=== PATIENT | female | born 2000 | race Two or more races ===

== ENCOUNTER 2024-11-15 13:46 | Outpatient (OUT) | payer BC, MEDICAID, SELFPAY ==
--- OUTSIDE RECORDS SUMMARY | 2023-11-24 06:40 | XMS_ITS ---
Author Organization [facility] Address [address] [place] [address] Care Team Providers Care Casting And Locker Room Servicer Name Role Phone Davis Velásquez Unavailable [phone] Results Component Value Reference Range Notes *US OB Transvaginal Reviewed date:11/25/2023 11:02:06 AM Interpretation: Performing Lab: Notes/Report: [facility] Women's Health transvaginal Obstetric Study Report Name: TIA CALVIN Accession/Encounter No:[id number] : 2000 Age: 23 Gender: F Study [...] Present Biometry (Fetus A) HR: 178 bpm [place]-rump length:19.88 mm8w 4d 30% Anatomy (Fetus A) [...] 1 of 1 Imaging Center - , [facility] [id number] [facility] [address] Millie Vicente REASON FOR VISIT dates per JOSIE: 06/28/24 LMP: Social History Sex Assigned At : Social History Observation Description Sex Assigned At Female Encounters Encounter Location Date Provider Diagnosis Ultrasound [place] Millie Vicente [place]-SHLF [address] [facility] [place] [address] 11/24/2023 Davis Velásquez test positive Z32.01 Assessments Encounter Date Diagnosis (ICD Code) Assessment Notes Treatment Notes Treatment Clinical Notes Section Notes 11/24/2023 test positive (ICD-10 - Z32.01) Plan Of Treatment No Information Progress Notes * Tia CALVINDOB:2000 (24 yo F)Acc No.[id number]:11/24/2023 Patient: Tia Cornell Provider: Romana Velásquez CNM :2000 A ge:23 Y S ex:Female Date:11/24/2023 Address:[address] [place] [address] [place] , [id number] Subjective: * Chief Complaints: * d ates per ac JOSIE: 06/28/24 LMP: Assessment: * Assessment: 1. P regnancy test positive - Z32.01 Plan: * Treatment: Billing Information: * Procedure Codes: * Electronic signature of Moira Velásquez NP on 11/15/2024 at 01:55 PM EDT Sign off status: Pending Visit Status: C HK (Check Out) * Provider: Romana Velásquez CNM Date: Generated for Abhishek roger/Jules/eToli on: 01:55 PM EDT
--- OUTSIDE RECORDS SUMMARY | 2024-11-15 13:55 | XMS_ITS | Clinical Summary ---
Author Organization [facility] Address [address] [place] [address] Care Team Providers Care Electronic Maintenance Supervisor Name Role Phone Unavailable Primary Care Provider Unavailabl e Social History Tobacco Use Types Packs/Day Years Used Date Smoking Tobacco: Never Assessed Comments Unknown Sex and Gender Information Value Date Recorded Sex Assigned at Not on file Legal Sex Female 10:17 AM EDT Gender Identity Not on file Sexual Orientation Not on file Plan of Treatment Upcoming Encounters Date Type Department Care Team (Late st Contact Info) Description 11/15/2024 2:30 PM EDT Initial [facility] [address] [place] [address] [place] [address] Insurance [facility]
--- OUTSIDE RECORDS SUMMARY | 2024-11-15 13:55 | XMS_ITS | Patient Health Record ---
Author Organization [facility] Address [address] [place] [address] Care Team Providers Care Teller Head Name Role Phone Davis Velásquez Unavailable [phone] Shira Santiago Unavailable [phone] Allergies No Known Allergies Results Component Value Reference Range Flag Notes *US OB Transvaginal Reviewed date:11/25/2023 11:02:06 AM Interpretation: Performing Lab: Notes/Report: [facility] Women's Health transvaginal Obstetric Study Report Name: TIA CALVIN Accession/Encounter No:[id number] : 2000 Age: 23 Gender: F Study [...] Present Biometry (Fetus A) HR: 178 bpm [place]-rump length:19.88 mm8w 4d 30% Anatomy (Fetus A) [...] TIA CALVIN 2023-11-24 Page 1 of 1 [facility] - , [place] [id number] u2013 [place] Drug Profile Screen, Urine Reviewed date:11/18/2023 11:18:43 AM Interpretation:Abnormal Performing Lab:[facility] CLIA ID [id number], [address], [address], [place] [address], Director - Alexandra Henderson MD Notes/Report: Urine Source: Urine Amphetamines Negative Barbiturates Negative Benzodiazepines Negative Buprenorphine Negative Cocaine Metabolite Negative Fentanyl Negative Methadone Negative Opiates Negative Oxycodone Negative Cannabinoids Positive A Sent to Lab or for confirmation testing CNR Pap w/reflex HPV/CTNG Reviewed date:11/25/2023 12:25:16 PM Interpretation: Performing Lab:[facility], [facility] - [facility] [place] CLIA ID [id number], [address], [address], [place] [address], Director - Alexandra Henderson MD Notes/Report: Any Nucleic Acid Amplification testing is performed on the [employer] [place]. Diagnosis: Negative for intraepithelial lesion or malignancy. AP results FINAL FARM EQUIPMENT SERVICE TECHNICIAN CYTOLOGY REPORT DIAGNOSIS: Negative for intraepithelial lesion or malignancy. Specimen Adequacy: Satisfactory for interpretation with endocervical/transform ation zone component absent. Pertinent Clinical History/History of Surgery: Not provided Collection Technique: Not provided Results of Last Pap: Not provided LMP: unknown Date of Last Pap: Not provided Specimen Source: Cervical Specimen Type: ThinPrep Other Gynecological Patient Information: Not provided Recommendation: Follow-up based on current clinical guidelines and/or clinical consideration. Screening note: This specimen has been analyzed by the ThinPrep Imaging System, an interactive computer system which assists the lab in screening of ThinPrep Pap Test slides. Following imaging, the slide was reviewed by a Mechanical Reliability Engineer and/or Pathologist. Negative Educational Note: The pap screening test aids in the detection of premalignant and malignant states of the cervix. False positive and negative results may occur. It is not a diagnostic test. If abnormal cells are reported, follow-up based on current clinical guidelines and/or clinical consideration is recommended. Lisa Stoll Mechanical Reliability Engineer CPT Codes: 69691 ICD Codes: Z32.01 Chlamydia Trachomatis Negative Negative Neisseria Gonorrhoeae Negative Negative Urine Culture and Sensitivit y Reviewed date:11/21/2023 10:17:58 AM Interpretation: Performing Lab: Notes/Report: [facility] performed at: [CB] [facility] [address], [address], , Circular Saw Operator: Blaine Huggins, PhD Urine Culture, Routine Final report N Result 1 Comment N Mixed urogenital rhonda 25,000-50,000 colony forming units per mL Urine Reviewed date:11/17/2023 09:18:36 AM Interpretation:Positive Performing Lab: Notes/Report: Cannabinoid (THC) Confirmati on, Urine Reviewed date:11/22/2023 04:08:19 PM Interpretation:Abnormal Performing Lab: Notes/Report: [facility] performed at: [UI] [facility], [address] [place], [address], , Circular Saw Operator: Caren Ayala, PhD Cannabinoid Positive A Carboxy THC Conf, MS, UR 263 Cutoff=10 ng/mL N Please Note: Comment N Drug test results should be interpreted in the context of clinical information. Patient metabolic variables, specific drug chemistry, and specimen characteristics can affect test outcome. Technical consultation is available if a test result is inconsistent with an expected outcome. Email: [email or web address] Reason For Referral No Information Medications Medication SIG (Take, Route, Frequency, Duration) Notes Start Date End Date Status + DHA Activ e Ondansetron 4 MG Tablet Disintegrating 1 tablet on the tongue and allow to dissolve Orally as needed; Duration: 30 days 11/21/2023 Active Social History Sex Assigned At : Social History Observation Description Sex Assigned At Female Social History Drugs/Alcohol: Social Info Question Answer Notes Drugs Have you used drugs other than those for medical reasons in the past 12 months? Yes Marijuana? Yes Additional Details Category Social Info Options Details Migrated Social History Tobacco Use: jUST STOPPED VAPING Vital Signs Blood pressure diastolic 88 mm Hg 11/17/2023 Height 5ft 4in in 11/17/2023 Blood pressure systolic 132 mm Hg 11/17/2023 Weight 222 lbs 11/17/2023 BMI 38.1 kg/m2 11/17/2023 Encounters Encounter Location Date Provider Diagnosis [facility] [address] [facility] [place] [address] 11/21/2023 Davis Velásquez [facility] [address] [facility] [place] [address] 11/17/2023 Davis Velásquez Encounter for test, result positive Z32.01 ; test positive Z32.01 and Payroll Officer exam without abnormal findings Z01.419 Ultrasound [facility] US-LF [address] [facility] [place] [address] 11/24/2023 Davis Velásquez test positive Z32.01 Assessments Encounter Date Diagnosis (ICD Code) Assessment Notes Treatment Notes Treatment Clinical Notes Section Notes 11/17/2023 test positive (ICD-10 - Z32.01) 11/17/2023 Encounter for test, result positive (ICD-10 - Z32.01) 11/24/2023 test positive (ICD-10 - Z32.01) 11/17/2023 Payroll Officer exam without abnormal findings (ICD-10 - Z01.419) Plan Of Treatment Pending Test Test Name Order Date Blood Type ABO, RH and Antibody Screen 1 CBC 11/17/2023 HCG, qualitative 11/17/2023 Hepatitis B Surface Antigen 11/17/2023 Hepatitis C Virus AB 11/17/2023 HIV-1/2 Antigen and Antibodies, 4th Gene ration 11/17/2023 Rubella Antibodies, IgG 11/17/2023 Syphilis T Pallidium Screening [place] 1 Insurance Providers Payer Name Payer Address Payer Phone Subscriber Number Group Number Insured Name Patient Relationship to Insured Coverage Start Date Coverage End Date [employer] [address] [place] [address] [id number] Tia Calvin Self - patient is the insured Medical (General) History Medical History History ICD Code asthma - mild intermittent Surgical History Surgery Date(Month/Year) right knee arthroscopy 2021 cholecystectomy 2023
--- NOTE | 2024-11-15 14:00 | US_ITS ---
The [place] [id number] Patient Name: COLLIN CALVIN MRN: [id number] date: 2000 Sex: F Assigned Patient Location: US Current Patient Location: US Accession/Order Number: [id number] Exam Date: 11/15/2024 14:01 Report Date: 11/16/2024 13:50 At the request of: NESS READ DO Procedure: US OB transvaginal OB ultrasound. Reason for exam:Missed menses. Comparison:None Technique: Transvaginal imaging of the gravid uterus were obtained. Findings: Single live intrauterine 6 weeks 4 days by CRL JOSIE 07/07/2025. heart rate 124 bpm. No free fluid. Ovaries appear unremarkable with a dominant follicle within the right ovary. US/US OB transvaginal Impression: Single live intrauterine 6 weeks 4 days by CRL, JOSIE 07/07/2025. Impression dictated by: Yonny Carr Jr., DShitalOShital 11/16/2024 1:50 PM Dictation Location: [place] [address] Electronically authenticated by: [id number] Y Date: 11/16/2024 13:50
== END 2024-11-15 13:47 | disposition home or self-care (01) ==
PROVIDERS: Visit Provider Obstetrics & Gynecology
DX: Z32.01 Encounter for pregnancy test, result positive (principal); N92.6 Irregular menstruation, unspecified
CPT/HCPCS: 76817

== ENCOUNTER 2024-12-05 08:45 | Outpatient (OUT) | payer BC, MEDICAID, SELFPAY ==
--- OUTSIDE RECORDS SUMMARY | 2023-11-24 06:40 | XMS_ITS ---
Author Organization [facility] Address [address] [place] [address] Care Team Providers Care Chip Applying Machine Tender Name Role Phone Davis Velásquez Unavailable [phone] Results Component Value Reference Range Notes *US OB Transvaginal Reviewed date:11/25/2023 11:02:06 AM Interpretation: Performing Lab: Notes/Report: [facility] Women's Health transvaginal Obstetric Study Report Name: TIA CALVIN Accession/Encounter No:[id number] : 2000 Age: 23 Gender: F Study [...] Present Biometry (Fetus A) HR: 178 bpm [place]-rump length:19.88 mm8w 4d 30% Anatomy (Fetus A) [...] 1 of 1 Imaging Center - , [facility] [id number] [place] [id number] Jules REASON FOR VISIT dates per JOSIE: 06/28/24 LMP: Social History Sex Assigned At : Social History Observation Description Sex Assigned At Female Encounters Encounter Location Date Provider Diagnosis Ultrasound [facility] US-LF [address] [facility] [place] [address] 11/24/2023 Davis Velásquez test positive Z32.01 Assessments Encounter Date Diagnosis (ICD Code) Assessment Notes Treatment Notes Treatment Clinical Notes Section Notes 11/24/2023 test positive (ICD-10 - Z32.01) Plan Of Treatment No Information Progress Notes * NIKUNJ TiaDOB:2000 (24 yo F)Acc No.[id number]:11/24/2023 Patient:?Tia Calvin :?FLORINDA RubyOB:2000???Age:23 Y ???Sex:FemaleDate:11/24/2023hone:[phone]:[address] [place], [place]-[id number] Subjective: * Chief Complaints: * d ates per ac JOSIE: 06/28/24 LMP: Assessment: * Assessment: 1.? test positive - Z32.01??? Plan: * Treatment: ?Imaging: *US OB Transvaginal (Performed Date - 11/24/2023) Billing Information: * Procedure Codes: * Electronic signature of Davis Velásquez NP on 12/05/2024 at 08:50 AM EDTSign off status: PendingVisit Status:?CHK (Check Out) * Provider: Romana Velásquez CNM Date: 1 Generated for Printing/Faxing/eTransmitting on:?12/05/2024 08:50 AM EDT
--- OUTSIDE RECORDS SUMMARY | 2024-12-05 08:51 | XMS_ITS | Clinical Summary ---
Author Organization [facility] Address [address] [facility] [place] [address] Care Team Providers Care Block Handler Name Role Phone Unavailable Primary Care Provider Unavailabl e Allergies No known active allergies Medications No known medications Encounters DateTypeDepartmentCare CpptChqgasujzea65/03/2025linisync Result Encounter [facility] External Department Unsolicited Ness Fuentes DO 11/15/2024 2:30 PM EDTInitial [facility] [address] [place] [address] [place]: 6w4d11/15/2024bstract [facility] [address] [place] [address] Ness Fuentes DO 11/15/2024bstract [facility] [address] [place] [address] Ness Fuentes DO from Last 3 Months Social History Tobacco UseTypesPacks/DayYears UsedDateSmoking Tobacco: NeverSmokeless Tobacco: NeverEstimated Date of QzomghjzEwdgvaoiSnj02/24/2026ased on Ultrasound Sex and Gender InformationValueDate RecordedSex Assigned at BirthNot on file Legal GtqAanjop76/23/2025 10:17 AM EDTGender IdentityNot on fileSexual OrientationNot on file Last Filed Vital Signs Vital SignReadingTime TakenCommentsBlood Jdzwojnk095/6811/15/2024 3:15 PM EDT Pulse--Temperature--Respiratory Rate--Oxygen Saturation--Inhaled Oxygen Concentration--Rfgpbn008 kg (247 lb 3.2 oz)11/15/2024 3:15 PM EDTHeight--Body Mass Index-- Plan of Treatment Not on file Procedures Procedure NamePriorityDate/TimeAssociated DiagnosisCommentsUS OB TRANSVAGINAL 11/16/2024 1:50 PM EDT POCT URINALYSIS MOKHADOBBvfdiza35/02/2025 3:16 PM EDT Missed menses POCT , OVYIYJypbfqe05/02/2025 3:16 PM EDT Missed menses from Last 3 Months Results * US OB TRANSVAGINAL (11/16/2024 1:50 PM EDT)Anatomical RegionLateralityModality OtherSpecimen (Source)Anatomical Location / LateralityCollection Method / VolumeCollection TimeReceived Time11/16/2024 1:50 PM EDT Narrative 11/16/2024 1:52 PM EDT [facility] ?[address] ? [place] [address] ? Ultrasound Report ? Signed ? Patient: WHITE,TIA ? MR#: [id number] ?? : 2000 ?Acct:[id number] ?? Age/Sex: 24 / F ?ADM Date: 11/15/24 ?? Loc: US ? Attending Dr: Ness Fuentes D.O. ? Ordering Physician: Ness Fuentes D.O. ?? Date of Service: 11/15/24 ?? Procedure(s): US OB transvaginal ?? Accession Number(s): [id number] ? cc: Ness Fuentes D.O.; Physician,Non-Staff M.D. ? [facility] ? [address] [facility] ? [place] [address] ? Patient Name: ?? TIA ??WHITE ? MRN: [id number] ? date: 2000 ?Sex: F ?? Assigned Patient Location: US ?? Current Patient Location: US ?? Accession/Order Number: [id number] ?? Exam Date: 11/15/2024 ??14:01 ?Report Date: 11/16/2024 ??13:50 ? At the request of: ?? NESS ??GINA ??DO ? Procedure: ??US OB transvaginal ? OB ultrasound. ? Reason for exam:Missed menses. ? Comparison:None ? Technique: Transvaginal imaging of the gravid uterus were obtained. ? Findings: ? Single live intrauterine 6 weeks 4 days by CRL JOSIE 07/07/2025. ? heart rate 124 bpm. ??No free fluid. ??Ovaries appear unremarkable with a ?? dominant follicle within the right ovary. ? US/US OB transvaginal ?? Impression: ? Single live intrauterine 6 weeks 4 days by CRL, JOSIE 07/07/2025. ? Impression dictated by: Yonny Carr Jr., D.O. ??11/16/2024 1:50 PM ? Dictation Location: RADIO-PC-23 ? Electronically authenticated by: [id number] ??Y ?? Date: 11/16/2024 ??13:50 ? Dictated By: ?Yonny Carr M.D. ? Signed By: ?11/16/24 1352 ? DD/ 1350 ? TD/TT: ? Retail Advertising Account Executive: Procedure Note Radiology, Radiologist, MD - 11/16/2024 [place] [address] Ultrasound Report Signed Patient: TIA MCKEONMR#: [id number] : 2000Acct:[id number] Age/Sex: 24 FADM Date: 11/15/24 Loc: US Attending Dr: Ness Fuentes D.O. Ordering Physician: Ness Fuentes D.O. Date of Service: 11/15/24 Procedure(s): US OB transvaginal Accession Number(s): [id number] cc: Ness Fuentes D.O.; Physician,Non-Staff M.D. The [address] [address] Patient Name: TIA MCKEON MRN: [id number] date: 2000 Sex: F Assigned Patient Location: US Current Patient Location: US Accession/Order Number: [id number] Exam Date: 11/15/2024 14:01 Report Date: 11/16/2024 13:50 At the request of: NESS FUENTES DO Procedure: US OB transvaginal OB ultrasound. Reason for exam:Missed menses. Comparison:None Technique: Transvaginal imaging of the gravid uterus were obtained. Findings: Single live intrauterine 6 weeks 4 days by CRL JOSIE 07/07/2025. heart rate 124 bpm. No free fluid. Ovaries appear unremarkable with a dominant follicle within the right ovary. US/US OB transvaginal Impression: Single live intrauterine 6 weeks 4 days by CRL, JOSIE 07/07/2025. Impression dictated by: Yonny Carr Jr., D.O. 11/16/2024 1:50 PM Dictation Location: [place] [address] Electronically authenticated by: [id number] Y Date: 3:50 Dictated By: Yonny Carr M.D. Signed By:11/16/24 1352 DD/ 1350 TD/TT: Retail Advertising Account Executive: Authorizing ProviderResult TypeResult StatusCorey Gina DOCLINISYNC IMAGINGFinal Result * (ABNORMAL) POCT , urine manually resulted (11/15/2024 3:16 PM EDT) ComponentValueRef RangeTest MethodAnalysis TimePerformed AtPathologist SignaturePreg Test, UrPositiveNegativeSpecimen (Source)Anatomical Location / LateralityCollection Method / VolumeCollection TimeReceived TimeUrine 11/15/2024 3:16 PM EDT Narrative Authorizing ProviderResult TypeResult StatusHalima Abdul NPPOINT OF CARE TEST ENTER/EDIT ORDERABLESFinal Result * (ABNORMAL) POCT urinalysis dipstick manually resulted (11/15/2024 3:16 PM EDT) ComponentValueRef RangeTest MethodAnalysis TimePerformed AtPathologist SignatureColor, UAYellowClarity, UAClearGlucose, UANegativeNegative - 2000(110) ++++ mg/dLBilirubin, UANegativeNegative - 4(70) +++ mg/dLKetones, UA PositiveNegative - 160(16) ++++ mg/dLSpec Grav, UA1.0251 - 1.03Blood, UA NegativeNegative - 50 Tom/mcLpH, UA6.05 - 9Protein, UANegativeNegative - 2000(20) ++++ mg/dLUrobilinogen, UA2.00.2 - 12 mg/dLLeukocytes, UANegative Negative - 500+++ Radha/mcLNitrite, UANegativeNegative - PositiveSpecimen (Source)Anatomical Location / LateralityCollection Method / VolumeCollection TimeReceived KdhoMaudq14/02/2025 3:16 PM EDT Narrative Authorizing ProviderResult TypeResult StatusKristina Franko NPPOINT OF CARE TEST ENTER/EDIT ORDERABLESFinal Result from Last 3 Months Insurance * Guarantor: Tia MckeonAccount TypeRelation to PatientDate of BirthPhone Billing AddressPersonal/ImzvsvVjwv2000 [address] [address]
--- OUTSIDE RECORDS SUMMARY | 2024-12-05 08:51 | XMS_ITS | Patient Health Record ---
Author Organization [facility] Group Address [address] [place] [address] Care Team Providers Care Gis Coordinator Name Role Phone Davis Velásquez Unavailable [phone] Shira Santiago Unavailable [phone] Allergies No Known Allergies Reason For Referral No Information Medications Medication SIG (Take, Route, Frequency, Duration) Notes Start Date End Date Status + DHA ActiveOndansetron 4 MG Tablet Disintegrating1 tablet on the tongue and allow to dissolve Orally as needed; Duration: 30 days11/21/2023ctive Social History Sex Assigned At : Social History Observation Description Sex Assigned At Female Social History Drugs/Alcohol:Social InfoQuestionAnswerNotesDrugsHave you used drugs other than those for medical reasons in the past 12 months?Yes? Marijuana?YesAdditional DetailsCategorySocial InfoOptionsDetailsMigrated Social HistoryTobacco Use:jUST STOPPED VAPING Plan Of Treatment Pending Test Test Name Order Date Blood Type ABO, RH and Antibody Screen 1 CBC 11/17/2023 HCG, qualitative 11/17/2023 Hepatitis B Surface Antigen 11/17/2023 Hepatitis C Virus AB 11/17/2023 HIV-1/2 Antigen and Antibodies, 4th Gene ration 11/17/2023 Rubella Antibodies, IgG 11/17/2023 Syphilis T Pallidium Screening [place] 1 Insurance Providers Payer Name Payer Address Payer Phone Subscriber Number Group Number Insured Name Patient Relationship to Insured Coverage Start Date Coverage End Date [employer] [address] [place] [address] [id number] Tia Mckeon Self - patient is the insured Medical (General) History Medical History History ICD Code asthma - mild intermittent Surgical History Surgery Date(Month/Year) right knee arthroscopy 2021 cholecystectomy 2023
[2024-12-05 09:47] LABS: Hematocrit 36.9 % (36.0-48.0); Hemoglobin 12.1 g/dL (12.0-16.0); Immature Granulocytes Abs Auto 0.02 10^3/uL (0.00-0.03); Immature Granulocytes Pct Auto 0.3 % (0.0-0.5); Lymphocytes Absolute Auto 1.5 10^3/uL (1.2-3.8); Mean Corpuscular HGB Conc 32.8 g/dL (29.9-35.2); Mean Corpuscular Hemoglobin 27.1 pg (26.7-34.0); Mean Corpuscular Volume 82.6 fL (81.0-99.0); Platelet Count 274 10^3/uL (150-450); Red Blood Count 4.47 10^6/uL (4.20-5.40); White Blood Count 8.0 10^3/uL (4.0-11.0)
[2024-12-05 10:33] LABS: Cannabinoid Screen Urine POSITIVE (NEGATIVE); Methamphetamines Screen Urine NEGATIVE (NEGATIVE); Tricyclic Antidepressant Urine NEGATIVE (NEGATIVE)
[2024-12-06 06:08] LABS: Rubella Antibodies, IgG 6.67 index (Immune >0.99)
[2024-12-06 12:08] LABS: Rapid Plasma Reagin, Quant Non Reactive titer (NonRea<1:1)
[2024-12-08 20:08] LABS: Carboxy THC Conf, MS, UR 204 ng/mL (Cutoff=10)
== END 2024-12-05 08:46 | disposition home or self-care (01) ==
LOC: LAB 08:48
PROVIDERS: Visit Provider Nurse Practitioner Family
DX: Z34.01 Encounter for supervision of normal first pregnancy, first trimester (principal); N92.6 Irregular menstruation, unspecified
CPT/HCPCS: 36415; 80307; 80349; 83036; 85025; 86592; 86762; 86803; 86850; 86900; 86901; 87086; 87340; 87389

== ENCOUNTER 2025-01-23 21:29 | Outpatient (REF) | payer BC, MEDICAID, SELFPAY ==
--- OUTSIDE RECORDS SUMMARY | 2023-11-24 05:40 | XMS_ITS ---
Author Organization [facility] Address [address] [place] [address] Care Team Providers Care Visitor Information Assistant Name Role Phone Davis Velásquez Unavailable [phone] Results Component Value Reference Range Notes *US OB Transvaginal Reviewed date:11/25/2023 11:02:06 AM Interpretation: Performing Lab: Notes/Report: [facility] Women's Health transvaginal Obstetric Study Report Name: TIA CALVIN Accession/Encounter No:[id number] : 2000 Age: 23 Gender: F Study Date: Nov 24, 2023 Study Time: 10:42 AM Reading Group: POD L Referring Group: Davis Velásquez CNM Ordering Phys: Davis Velásquez CNM Performing User: Marianela Guerra RDMS Equipment: Affiniti 50W Study Quality: Excellent Diagnosis Code: (Z3201) test positive Procedure Code: USOBTRANS - *US OB Transvaginal Indications: OB First Trimester Ultrasound Examination After informed consent, a 1st Trimester ultrasound was performed. General Information Trimester: 1st trimester Gestations: 1 : Intrauterine Gestational Age (Best) Best: 9w 0d Determined by: LMP JOSIE: 2024-06-28 Gestational Age (LMP) LMP: 9w 0d First Day of LMP: 2023-09-22 JOSIE: 2024-06-28 Gestational Age (Current US) Current US: 8w 4d JOSIE: 2024-07-01 General Evaluation cardiac activity: Present Gestational sac: Present Amniotic fluid: Normal Yolk sac: Present pole: Present Biometry (Fetus A) HR: 178 bpm [place]-rump length:19.88 mm8w 4d 30% Anatomy (Fetus A) Regular rhythm: Normal Findings: Anatomy: Sonographic evaluation reveals Viable pena intrauterine . G 3 P 0 AB 2 Single Viable IUP size is consistent with dates Yolk sac seen Good sac size adequate fluid vertical fluid pocket 2.1 cm No blood noted on the TV transducer cardiac activity present. Placenta Wraps placental grade 0. growth appears normal. AGA Fetus Maternal Anatomy: Cul-de-sac visualized. No free fluid noted The uterus is normal and anteverted. Lower uterine segment visualized. Small nabothian cysts seen The ovaries are visualized. Simple less than 5 mm in size residual follicles seen Conclusions: Single live intrauterine gestation in variable presentation. The CRL is consistent with dates. Approved By: Quinton Faust MD Approved at: November 25, 2023 09:29 AM EDT Electronically Signed on Studycast TIA CALVIN 2023-11-24 Page 1 of 1 Imaging Center - , [facility] [id number] [place] [id number] Jules REASON FOR VISIT dates per JOSIE: 06/28/24 LMP: Social History Sex Assigned At : Social History Observation Description Sex Assigned At Female Encounters Encounter Location Date Provider Diagnosis Ultrasound [facility] US-LF [address] [facility] [place] [address] 11/24/2023 Davis Velásquez test positive Z32.01 Assessments Encounter Date Diagnosis (ICD Code) Assessment Notes Treatment Notes Treatment Clinical Notes Section Notes 11/24/2023 test positive (ICD-10 - Z32.01) Plan Of Treatment No Information Progress Notes * NIKUNJ TiaDOB:2000 (24 yo F)Acc No.[id number]:11/24/2023 Patient:?Tia Calvin :?FLORINDA RubyOB:2000???Age:23 Y ???Sex:FemaleDate:11/24/2023hone:[phone]:[address] [place], [id number] Subjective: * Chief Complaints: * d ates per ac JOSIE: 06/28/24 LMP: Assessment: * Assessment: 1.? test positive - Z32.01??? Plan: * Treatment: ?Imaging: *US OB Transvaginal (Performed Date - 11/24/2023) Billing Information: * Procedure Codes: * Electronic signature of Davis Velásquez NP on 01/23/2025 at 09:35 PM ESTSign off status: PendingVisit Status:?CHK (Check Out) * Provider: Romana Velásquez CNM Date: 1 Generated for Printing/Faxing/eTransmitting on:?01/23/2025 09:35 PM EST
--- OUTSIDE RECORDS SUMMARY | 2025-01-23 21:35 | XMS_ITS | Clinical Summary ---
Author Organization [facility] tem Address [id number] [address] [place] [address] Care Team Providers Care Vendor Management Specialist Name Role Phone Castillo Choi DO Primary Care Provider Allergies No known active allergies Medications MedicationSigDispense QuantityRefillsLast FilledStart DateEnd DateStatus ibuprofen (MOTRIN) 600 mg tablet Take 1 tablet (600 mg total) by mouth every 8 (eight) hours as needed for pain. 30 tablet 11/05/2022ctive acetaminophen (TYLENOL EXTRA STRENGTH) 500 mg tablet Take 2 tablets (1,000 mg total) by mouth every 6 (six) hours as needed for pain. 30 tablet 11/05/2022ctive ondansetron ODT (ZOFRAN ODT) 4 mg disintegrating tablet Dissolve 1 tablet (4 mg total) on tongue every 8 (eight) hours as needed for nausea for up to 10 doses. 10 tablet 06/30/2023ctive albuterol (PROVENTIL HFA;VENTOLIN HFA) 90 mcg/actuation inhaler Inhale 2 puffs every 6 (six) hours as needed for wheezing.Active Active Problems ProblemNoted DateDiagnosed DateModerate persistent asthma with exacerbation 01/11/2021Other atopic qapzgmxlid68/28/2021Estimated Date of Delivery YevmbyjrCwg85/24/2026Based on Ultrasound Encounters DateTypeDepartmentCare XbpiUodkioqmgwq43/05/2025bstract Maternal- Medicine at [facility] [address] [place] [phone] Sukhi Hernandez MD 5Abstract Maternal- Medicine at [facility] [address] [facility] [place] [phone] Sukhi Hernandez MD from Last 3 Months Immunizations ImmunizationAdministration DatesNext DueDTaP / Hep B / IPV03/11/2005DTaP, Lxzsfqbmqcr64/16/2003,2001,2001,2001HPV Ctlwpnmsegzh02/11/2014 ,06/26/2013,04/23/2013Hep A, 2 Dose10/25/2013,04/23/2013Hep B / HIB2001, 2001HiB06/29/2002,2001Hib (PRP-T)03/11/2005IPV2001,2001, 2001MMR03/11/2005,06/29/2002Meningococcal BTU5T3905/25/2017,06/26/2013 Pneumococcal Cuxgtimxe84/26/2006,06/29/2002,2001,2001Tdap04/23/2013 Kcydohpmr01/13/2014,06/29/2002 Family History Medical HistoryRelationNameCommentsKidney cancerFatherHypertensionMotherRelation NameStatusCommentsFatherAliveMotherAlive Social History Tobacco UseTypesPacks/DayYears UsedDateSmoking Tobacco: Every Day Vaping/E-cigarettesSmokeless Tobacco: Never Tobacco Cessation:Ready to Q uit: Not Asked; Counseling Given: Not Answered Alcohol UseStandard Drinks/WeekCommentsNot Currently0 (1 standard drink = 0.6 oz pure alcohol)ChildcareAnswerDate AstbgsjlFvgsvsveiRedvpfa93/12/2019Employment AnswerDate YitcmbwiFltighjfzgAolkavt92/12/2019Hunger ScreeningAnswerDate RecordedWithin the past 12 months we worried whether our food would run out before we got money to buy more.Never True06/30/2023Within the past 12 months the food we bought just didn't last and we didn't have money to get more.Never True06/30/2023Estimated Date of WqvzsaikZljfivarZaj85/24/2026ased on UltrasoundSex and Gender InformationValueDate RecordedSex Assigned at BirthNot on fileLegal GffDubqqq99/06/2015 12:07 PM EDTGender IdentityNot on fileSexual OrientationNot on file Last Filed Vital Signs Vital SignReadingTime TakenCommentsBlood Opyfekzt429/8907/12/2023 12:40 PM EDT Jmzle622407/12/2023 12:40 PM VOTLfglzcbuzfk22.2 ??C (97.2 ??F)07/12/2023 11:45 AM EDTRespiratory Cshs079907/12/2023 12:40 PM EDTOxygen Rqhifjkycr119%07/12/2023 12:40 PM EDTInhaled Oxygen Concentration--Izgzql17.3 kg (210 lb)07/26/2023 2:56 PM GIEGvflrk047 cm (5' 3 )07/26/2023 2:56 PM EDTBody Mass Index37. 2:56 PM EDT Plan of Treatment DateTypeDepartmentCare Team (Latest Contact Info)Jjsypsmbqxj79/16/2025 8:45 AM ESTAppointment [facility] Imaging [address] [place] [phone] 01/29/2025 10:00 AM ESTOffice Visit Maternal- Medicine at [facility] [address] [place] [phone] Sukhi Hernandez MD [address] [place] [address] Health MaintenanceDue DateLast DoneCommentsChlamydia Opacrtwmx2001Tobacco Tprlfobpps2001Depression Zzeymhxax11/31/2013dult BMI Dwktmopfb99/11/2025 07/26/2023Tobacco Uopwqjwhz82/12/2023Influenza Dkrdpeq0810/15/2024Pap Smear/4DTaP,Tdap and Td Vaccines (8 - Td or Tdap)05/03/2034 05/03/2024, 04/23/2013, 03/11/2005, Additional history existsRSV ( or age 60+ yrs) (1 - 1-dose 75+ series)02/14/2076 Goals GoalPatient Goal TypeAssociated ProblemsRecent ProgressPatient-Stated?Author Home Angie Hilario LSW Note: Evaluation of progress towards goal: Safe dc transition from hospital to home with family support. Medical Devices Not on file Procedures Procedure NamePriorityDate/TimeAssociated DiagnosisCommentsTYPE AND SCREEN Vatflnp7212/05/2024 FREE CELL DNA (NON-[facility] SEND OUT)Kqfegew9412/05/2024HEPATITIS B SURFACE GISPITWJxxjcdz18/22/2025 HEPATITIS C(HCV) ANTIBODY W/REFLEX TO BCBSzibafs06/22/2025 DRUG SCREEN, AKBLUHlzrvvy09/22/2025 CBC (NO DIFF)Ypphrmn7612/05/2024 HIV 1&2 AB/AG SCREEN (P24 AG)Sjqsdhw5112/05/2024 RUBELLA IGG IMMUNE YBMGQAHuvaqvv81/22/2025 SYPHILIS TOTAL(UNKNOWN SYPHILIS STATUS)Fztbyut8212/05/2024 from Last 3 Months Results * HIV 1&2 AB/AG Screen (P24 AG) (12/05/2024)ComponentValueRef RangeTest Method Analysis TimePerformed AtPathologist SignatureHIV 1&2 AB/AGNON REACTIVE MANUALLY TRANSCRIBED RESULTSSpecimen (Source)Anatomical Location / Laterality Collection Method / VolumeCollection TimeReceived TimeBloodVenous blood / Unknown Narrative Authorizing ProviderResult TypeResult StatusNot In System Ref ProvLAB BLOOD ORDERABLESFinal ResultPerforming OrganizationAddressCity/State/ZIP CodePhone Number MANUALLY TRANSCRIBED RESULTS * Free Cell DNA (Non-[facility] Send Out) (12/05/2024)Specimen (Source) Anatomical Location / LateralityCollection Method / VolumeCollection Time Received Time12/05/2024 Narrative Authorizing ProviderResult TypeResult StatusNot In System Ref ProvLAB BLOOD ORDERABLESFinal ResultPerforming OrganizationAddressCity/State/ZIP CodePhone Number MANUALLY TRANSCRIBED RESULTS * Rubella IGG immune status (12/05/2024)ComponentValueRef RangeTest Method Analysis TimePerformed AtPathologist SignatureRubella immune IgGIMMUNEMANUALLY TRANSCRIBED RESULTSSpecimen (Source)Anatomical Location / LateralityCollection Method / VolumeCollection TimeReceived TimeBloodVenous blood / Unknown Narrative Authorizing ProviderResult TypeResult StatusNot In System Ref VipshopLAB BLOOD ORDERABLESFinal ResultPerforming OrganizationAddressCity/State/ZIP CodePhone Number MANUALLY TRANSCRIBED RESULTS * Syphilis Total (Unknown Syphilis Status) (12/05/2024)ComponentValueRef Range Test MethodAnalysis TimePerformed AtPathologist SignatureSyphilisNON REACTIVE MANUALLY TRANSCRIBED RESULTSSpecimen (Source)Anatomical Location / Laterality Collection Method / VolumeCollection TimeReceived TimeBloodVenous blood / Unknown Narrative Authorizing ProviderResult TypeResult StatusNot In System Ref ProvLAB BLOOD ORDERABLESFinal ResultPerforming OrganizationAddressCity/State/ZIP CodePhone Number MANUALLY TRANSCRIBED RESULTS * Hepatitis C(HCV) Ab w/ Reflex to PCR (12/05/2024)ComponentValueRef RangeTest MethodAnalysis TimePerformed AtPathologist SignatureHepatitis C AntibodyNON REACTIVEMANUALLY TRANSCRIBED RESULTSSpecimen (Source)Anatomical Location / LateralityCollection Method / VolumeCollection TimeReceived TimeBloodVenous blood / Unknown Narrative Authorizing ProviderResult TypeResult StatusNot In System Ref ProvLAB BLOOD ORDERABLESFinal ResultPerforming OrganizationAddressCity/State/ZIP CodePhone Number MANUALLY TRANSCRIBED RESULTS * Drug Screen, Urine (12/05/2024)ComponentValueRef RangeTest MethodAnalysis Time Performed AtPathologist SignatureMethadoneNEGATIVEMANUALLY TRANSCRIBED RESULTS OpiatesNEGATIVEMANUALLY TRANSCRIBED RESULTSAmphetamine/MethamphetamineNEGATIVE MANUALLY TRANSCRIBED RESULTSCocaine MetaboliteNEGATIVEMANUALLY TRANSCRIBED RESULTSPhencyclidineNEGATIVEMANUALLY TRANSCRIBED RESULTSThc Marijuana, Urine POSITIVEMANUALLY TRANSCRIBED RESULTSOxycodoneNEGATIVEMANUALLY TRANSCRIBED RESULTSBarbituratesNEGATIVEMANUALLY TRANSCRIBED RESULTSBenzodiazepinesNEGATIVE MANUALLY TRANSCRIBED RESULTSSpecimen (Source)Anatomical Location / Laterality Collection Method / VolumeCollection TimeReceived TimeUrine Narrative Authorizing ProviderResult TypeResult StatusNot In System Ref ProvURINE ORDERABLESFinal ResultPerforming OrganizationAddressCity/State/ZIP CodePhone Number MANUALLY TRANSCRIBED RESULTS * Hepatitis B surface antigen (12/05/2024)ComponentValueRef RangeTest Method Analysis TimePerformed AtPathologist SignatureHepatitis B Surface Antigen NEGATIVEMANUALLY TRANSCRIBED RESULTSSpecimen (Source)Anatomical Location / LateralityCollection Method / VolumeCollection TimeReceived TimeBloodVenous blood / Unknown Narrative Authorizing ProviderResult TypeResult StatusNot In System Ref ProvLAB BLOOD ORDERABLESFinal ResultPerforming OrganizationAddressCity/State/ZIP CodePhone Number MANUALLY TRANSCRIBED RESULTS * CBC without diff (12/05/2024)ComponentValueRef RangeTest MethodAnalysis Time Performed AtPathologist WexvlgvvnOkiwpncnoc69.1MANUALLY TRANSCRIBED RESULTS Nzpqojvsmd09.9MANUALLY TRANSCRIBED RESULTSRbc Mcv (Fl) By Automated Count82.6 MANUALLY TRANSCRIBED VZFOEKEUxxlvockl763FXZFZLNN TRANSCRIBED RESULTSSpecimen (Source)Anatomical Location / LateralityCollection Method / VolumeCollection TimeReceived TimeBloodVenous blood / Unknown Narrative Authorizing ProviderResult TypeResult StatusNot In System Ref ProvLAB BLOOD ORDERABLESFinal ResultPerforming OrganizationAddressCity/State/ZIP CodePhone Number MANUALLY TRANSCRIBED RESULTS * Type and screen (12/05/2024)ComponentValueRef RangeTest MethodAnalysis Time Performed AtPathologist SignatureAbo/Rh(D)A PositiveMANUALLY TRANSCRIBED RESULTSAntibody ScreenNEGATIVEMANUALLY TRANSCRIBED RESULTSSpecimen (Source) Anatomical Location / LateralityCollection Method / VolumeCollection Time Received TimeBloodVenous blood / Unknown Narrative Authorizing ProviderResult TypeResult StatusNot In System Ref ProvBLOOD BANK TEST ORDERABLESFinal ResultPerforming OrganizationAddressCity/State/ZIP Code Phone Number MANUALLY TRANSCRIBED RESULTS from Last 3 Months Insurance Advance Directives * Full Code (Latest Code Status on File) Date ActivatedDate HfivqgkgafsYximedmc50/28/2021 12:11 PM01/12/2021 5:22 PM Care Teams Team MemberRelationshipSpecialtyStart DateEnd Date Castillo Choi DO [address], [place] [address] PCP - GeneralFamily Spxfhxou56/2/21
--- OUTSIDE RECORDS SUMMARY | 2025-01-23 21:35 | XMS_ITS ---
Author Organization [facility] Source Produ ction (ClinicalSummary Clone) Address Unknown Care Team Providers Care Pinsetter Mechanic Automatic Name Role Phone Unavailable Primary Care Physician Unavailab le Results * [UNITY] ANEUPLOIDY NIPT Performed by: [place] Component Value Range Date Fraction 3.1% 12/14/2024 05:08 am UTCRh(D) NIPTRhD JWNIYILZ47/31/2025 05:08 am UTCSex Chromosome AneuploidyXXY KAXIDQCU92/31/2025 05:08 am UTCMonosomy XLOW RISK <1 in 05:08 am UTCTrisomy 13LOW RISK <1 in 05:08 am UTCTrisomy 18LOW RISK <1 in 05:08 am UTCTrisomy 21LOW RISK <1 in 05:08 am UTCFetal NuwQXII77/31/2025 05:08 am UTCPregnancy QznkkbasfEOYEULNGA85/31/2025 05:08 am UTCFor detailed report, see PDFSee PDF 12/14/2024 05:08 am UTC1 05:08 am UTC Social History Observation Value Start Date End Date
--- OUTSIDE RECORDS SUMMARY | 2025-01-23 21:35 | XMS_ITS | Patient Health Record ---
Author Organization [facility] Group Address [address] [place] [address] Care Team Providers Care Industrial Safety And Health Manager Name Role Phone Davis Velásquez Unavailable [phone] Allergies No Known Allergies Reason For Referral [...] Antibodies, IgG 11/17/2023 Syphilis T Pallidium Screening [place] 1 Insurance Providers Payer Name Payer Address Payer Phone Subscriber Number Group Number Insured Name Patient Relationship to Insured Coverage Start Date Coverage End Date [place] [employer] [address] [place] [id number] Bob Mckeon Self - patient is the insured Medical (General) History Medical History History ICD Code asthma - mild intermittent Surgical History Surgery Date(Month/Year) right knee arthroscopy 2021 cholecystectomy 2023
--- OUTSIDE RECORDS SUMMARY | 2025-01-23 21:36 | XMS_ITS | Encounter Summary ---
Author Organization [facility] tem Address [id number] [address] [place] [address] Care Team Providers Care Personal Banker Name Role Phone Castillo Choi DO Primary Care Provider [phone] Encounter Details DateTypeDepartmentCare Team (Latest Contact Info)Ptlauqbukac57/05/2025Abstract Maternal- Medicine at [facility] [address] [facility] [place] [phone] Sukhi Hernandez MD [address] [facility] [address] [place], [place] [id number] Social History Tobacco UseTypesPacks/DayYears UsedDateSmoking Tobacco: Every Day Vaping/E-cigarettesSmokeless Tobacco: NeverAlcohol UseStandard Drinks/Week CommentsNot Currently0 (1 standard drink = 0.6 oz pure alcohol)ChildcareAnswer Date VtyremdwQiioemnigIunvfsc33/12/2019EmploymentAnswerDate RecordedEmployment Qlankmr7707/26/2018Hunger ScreeningAnswerDate RecordedWithin the past 12 months we worried whether our food would run out before we got money to buy more.Never True06/30/2023Within the past 12 months the food we bought just didn't last and we didn't have money to get more.Never True4Estimated Date of GvvidbvrQdxunzahImp62/24/2026Based on UltrasoundSex and Gender InformationValue Date RecordedSex Assigned at BirthNot on fileLegal UcuNmsqeb50/06/2015 12:07 PM EDTGender IdentityNot on fileSexual OrientationNot on filedocumented as of this encounter Plan of Treatment DateTypeDepartmentCare Team (Latest Contact Info)Nyrnzjoddao77/16/2025 8:45 AM ESTAppointment [facility] Imaging [address] [place] [phone] 01/29/2025 10:00 AM ESTOffice Visit Maternal- Medicine at [facility] [address] [place] [phone] Sukhi Hernandez MD [address] [facility], [address] [place] [address] documented as of this encounter Goals GoalPatient Goal TypeAssociated ProblemsRecent ProgressPatient-Stated?Author Home Angie Hilario LSW Note: Evaluation of progress towards goal: Safe dc transition from hospital to home with family support. documented as of this encounter Visit Diagnoses Not on filedocumented in this encounter Care Teams Team MemberRelationshipSpecialtyStart DateEnd Date Castillo Choi DO [address] [place] [address] PCP - GeneralFamily Ioutptmo15/2/21documented as of this encounter
== END 2025-01-23 21:30 | disposition home or self-care (01) ==
LOC: LAB 21:29
PROVIDERS: Visit Provider Nurse Practitioner Family
DX: Z34.92 Encounter for supervision of normal pregnancy, unspecified, second trimester (principal)
CPT/HCPCS: 88175